=== PATIENT | female | born 1975 | race American Indian/Alaskan Native ===

== ENCOUNTER 2022-01-18 07:08 | Day surgery (SDC) | payer BC ==
[~2022-01-18 07:08] MED LIST: SODIUM CHLORIDE 0.9% 1000 ML 1,000 ML IV SCH; WATER FOR IRRIG STERILE 1,000 ML BOTTLE ONE; WATER FOR IRRIG STERILE 250 ML BOTTLE IR ONE
--- NOTE | 2022-01-18 08:30 | Anesthesia Consultation ---
Anesthesia Consult and Med Hx Date of service: 01/18/22 - Airway Anesthetic Teeth Evaluation: Good Mallampati Class: Class II Intubation Access Assessment: Good - Pulmonary Exam CTA: Yes - Cardiac Exam Cardiac Exam: RRR - Pre-Operative Health Status ASA Pre-Surgery Classification: ASA2 Proposed Anesthetic Plan: MAC - Gastrointestinal Hx Gastroesophageal Reflux Disease: Yes
--- NOTE | 2022-01-18 08:31 | Anesthesia Day of Surgery ---
Anesthesia Day of Surgery - Day of Surgery Patient Examined: Yes Patient H&P Reviewed: Yes Patient is NPO: Yes
[2022-01-18] MEDS ORDERED: propofoL 200 MG/20 ML VIAL IV ONE ×2 (08:35→08:42)
--- NOTE | 2022-01-18 09:13 | Procedure Note ---
Date of procedure: 01/18/22 Pre-op diagnosis: GERD/ Colon Polyp Screening Post-op diagnosis: other (Mild to Moderae Erosive Esophagitis/ R/O Eosinophilic Esophagitis/ Gastritis/ Gastroparesis/ Patent but deformed Pylorus/ R/O Celiac Disease/ Normal colon Mucosa ( no colon polyps or diverticular disease noted)/ Normal Ileal, Mucosa) Procedure: EGD with Biopsy/ Colonoscopy Anesthesia: [facility] [place] Surgeon: NELLI PALM Estimated blood loss: minimal Pathology: list Specimen disposition: to lab Condition: stable Disposition: same day (Treat with PPI and Reglan. Encourage OYC Probiotic use and avoid aspirin and NSAID for 5 days; otherwise resume home medication and F/U in 1 to 2 weeks.)
--- NOTE | 2022-01-18 09:18 | Post Anesthesia Evaluation ---
- Post Anesthesia Evaluation Patient Participated: Yes Airway Patent: Yes Stable Respiratory Function: Yes Nausea/Vomiting: No Temp > 96.8F: Yes Pain Manageable: Yes Adequeate Hydration: Yes Anesthesia Complications: No Block Receding Appropriately: Not Applicable Patient on Ventilator: No
--- NOTE | 2022-01-18 09:59 | Operative Report ---
DATE OF SURGERY: 01/18/2022 PROCEDURE: Colonoscopy. INDICATIONS: A 46-year-old, slightly obese -[place] female who had an EGD done prior to the colonoscopy, which is being done for colon polyp screening. EGD had shown [id number] erosive esophagitis, gastritis and some gastroparesis, but no peptic ulcer disease as well as a small hiatal hernia. DESCRIPTION OF PROCEDURE: Colonoscopy was done after getting informed consent with MAC anesthesia. Initial rectal examination was unremarkable. The instrument was passed through the rectum onto the cecum, which was identified with ileocecal valve and appendiceal orifice. Visualization was fair to good. Cecum was also visualized on the retroverted view. No additional pathology was noted. The terminal ileum was intubated, showed normal mucosa. The scope was then withdrawn to the hepatic flexure and reintroduced. Again, no additional pathology was noted in the proximal colon involving the cecum and ascending colon, the transverse colon likewise showed normal mucosa as did the left colon, which was the descending and the sigmoid colon. The rectum appeared normal on the retroverted view. No internal hemorrhoids were noted. There were no biopsies taken and no bleeding associated with the procedure and no complications associated with the procedure. ASSESSMENT: Colon polyp screening, no colon polyps noted. No diverticula noted. No internal hemorrhoids noted. Normal ileal mucosa. PLAN: To resume previous home medication. Treat the patient with PPI as well as Reglan because of the EGD findings of gastroparesis, esophagitis and gastritis. Patient will also be informed about lifestyle changes secondary to her small hiatal hernia and asked to follow up in the office in 1-2 weeks' time. Procedure was done in the GI lab with assistance of the GI lab team, which included the GI nurse, the robotic weld technician and with assistance of Anesthesia. TID: [id number] RECEIPT: [id number] GERARDO/SHMUEL
[2022-01-18 13:26] VITALS: BP 133/82
--- NOTE | 2022-01-18 13:51 | Operative Report ---
DATE OF SURGERY: 01/18/2022 PROCEDURE PERFORMED: EGD with biopsy. INDICATIONS: This is a 46-year-old, slightly obese -[place] female who had an EGD done to assess for GERD symptoms. DESCRIPTION OF PROCEDURE: Procedure was done after getting informed consent with MAC anesthesia. The instrument was passed through the hypopharynx into the esophagus, which showed some [id number] erosive esophagitis. Biopsy was done from the distal esophagus to assess for the severity of the erosive esophagitis. Biopsy was also done from the mid esophagus to rule out for eosinophilic esophagitis. The stomach showed a small hiatal hernia on the retroverted view as well as some evidence of gastroparesis. The pylorus is patent, but slightly deformed. Biopsy was done from the gastric antrum, gastric body and angular incisura to rule out for H. pylori and atrophic gastritis. Additional biopsy was also done from the second part of the duodenum to rule out for possible celiac disease. ASSESSMENT: Gastroesophageal reflux disease symptoms, [id number] erosive esophagitis, gastritis, gastroparesis, small hiatal hernia, rule out celiac disease, slightly deformed, but patent pylorus. PLAN: To have the patient avoid aspirin and aspirin-related products for the next 4-5 days, otherwise resume previous medication. Colonoscopy is to be done as part of colon polyp screening. Procedure was done in the GI lab with assistance of the GI lab team, which included the GI nurse, the technician trainee and with assistance of Anesthesia. TID: [id number] RECEIPT: [id number] GERARDO/SHMUEL/ARIES cc: Luis Dillard
== END 2022-01-18 10:30 | disposition home or self-care (01) ==
LOC: GIO 07:08
DX: Z12.11 Encounter for screening for malignant neoplasm of colon (principal); K21.00 Gastro-esophageal reflux disease with esophagitis, without bleeding; K29.70 Gastritis, unspecified, without bleeding; K44.9 Diaphragmatic hernia without obstruction or gangrene; B96.81 Helicobacter pylori [H. pylori] as the cause of diseases classified elsewhere; K31.89 Other diseases of stomach and duodenum; Z79.899 Other long term (current) drug therapy; Z98.891 History of uterine scar from previous surgery; Z98.890 Other specified postprocedural states
CPT/HCPCS: 43239; 45378; 81025; 88305; 88342; J2704; J7030; J7120; Q0162